=== PATIENT | male | born 1965 | race Caucasian/White ===

== ENCOUNTER 2021-04-11 11:07 | Observation (INO) ==
[2021-04-11] MEDS ORDERED: ASPIRIN CHEW 324 MG PO STA (11:20)
[2021-04-11] MEDS ORDERED: NITROGLYCERIN 2% OINTMENT 30GM TUBE EXT STA (11:20)
[2021-04-11] MEDS ORDERED: LABETALOL HCL IV 5 MG/ML 20ML IV STA (11:20)
--- NOTE | 2021-04-11 11:24 | Emergency Department Note ---
Impression & Plan Precordial chest pain, Hypertension, SOB (shortness of breath) ED Provider Note NAME: CARA CAREY AGE: 56 SEX: M : 1965 ARRIVES VIA: Walk-In INFORMANT: [Patient] ED PROVIDER(S): [Rosalino Horton MD] CHIEF COMPLAINT: Short of breath, doctor referred HISTORY OF PRESENT ILLNESS: The patient is a 56-year-old male with a history of hypertension and smoking. He has a strong family history of coronary disease. He admits that he oftentimes does not take his blood pressure medication. The patient has had a week of shortness of breath, especially with exertion. He has noticed some tightness in his chest. A few days ago, while shoveling ice, he has some moderate central chest discomfort that improved with rest and time. The patient states that 2 nights ago, he had a numb face and some vertigo. He felt very short of breath. Yesterday, he just did not feel quite right and decided to call his doctor's office. Today, at the doctors office, he was referred to the ED for the possibility of cardiac ischemia and/or PE. The patient does have some left posterior thigh pain. This has been ongoing for some time. He has never had a DVT or PE, there has been no leg swelling. The patient did take a home Covid test recently, it was negative. He is vaccin ated for COVID-19 but not influenza. REVIEW OF SYSTEMS: See HPI for pertinent positives and negatives. A total of ten systems were reviewed and were otherwise negative. PMHx/PSHx: See Below SOCIAL HISTORY: See Below. PHYSICAL EXAM: GENERAL: Patient is in no acute distress. HEENT: No acute trauma, normocephalic atraumatic, mucous membranes moist, no nasal congestion, no scleral icterus. NECK: No stridor, no adenopathy, no meningismus, trachea is midline. LUNGS: Clear to auscultation bilaterally, no wheeze, no rhonchi, breath sounds equal. HEART: Without murmurs gallops or rubs, regular rate and rhythm. ABDOMEN: Soft, nontender, bowel sounds positive, no hernias, no peritonitis. EXTREMITIES: No cyanosis or edema, full range of motion of all the joints without pain or difficulty, no signs for acute trauma. NEUROLOGIC: Oriented x 3, no acute motor or sensory deficits, no focal weakness. SKIN: No rash, no jaundice, no diaphoresis. DIFFERENTIAL DIAGNOSIS: Cardiac ischemia, COVID-19, aortic dissection, pulmonary embolism, pneumothorax, pneumonia, pericarditis, myocarditis, esophageal rupture, GERD, cholecystitis, pancreatitis, musculoskeletal, as well as other pathologies. EMERGENCY DEPARTMENT COURSE/PROCEDURES: ECG: Indication was chest pain and shortness of breath. The ECG shows a normal sinus rhythm with a rate of 78. There is no ST elevation, no PVCs. There is a potential old septal infarct noted. The QTc is 440. Continuous Cardiac Monitoring: An order was placed for continuous cardiac monitoring. The monitor shows a rate of 88 with normal sinus rhythm. MEDICAL DECISION MAKING: There is no leukocytosis or concerning anemia. There is a normal platelet count. No coagulopathy. D-dimer is not elevated making PE less likely. No significant electrolyte abnormality, no kidney failure. No worrisome liver enzyme elevation. No evidence for pancreatitis. TSH was a bit high but the T4 was normal. ECG shows a normal sinus rhythm, no ischemia. Cardiac enzyme testing x1 is not consistent with acute cardiac injury. Influenza and Covid testing returned negative. Chest x-ray did not show pneumonia or CHF. No mediastinal widening. Chest CT did not show PE. The patient presented hypertensive. He has been having some shortness of breath and chest pain as of late. He does have cardiac risk factors. The patient was given oral aspirin, IV labetalol and nitroglycerin paste. His blood pressure did decrease. He was resting comfortably. Given his risk factors, given his complaints, I do think further cardiac work-up is warranted. I did speak with the patient and case management. The on-call hospitalist was consulted. Past Med/Surg History Medical History (Updated 04/11/21 @ 14:30 by Rosalino Horton MD) Anxiety History of hepatitis C 10 YRS AGO COMPLETED 12 WEEK TX - "BELOW DETECTABLE LEVELS" History of high blood pressure HX MEDS, NONE CURRENTLY EXCEPT BABY ASPIRIN /MONITORS BP - UPCOMING [facility] SEP 14 Peripheral artery disease PTSD (post-traumatic stress disorder) THERAPY FOR PAST 2 YRS Spinal stenosis Surgical History History of appendectomy History of back surgery X2 - (HX 1 FUSION) History of colonoscopy History of neck surgery FUSION, 3 LEVELS - DENIES LIMITED ROM History of neck surgery 2 SCREWS REMOVED History of surgery R LEG ANGIOGRAM Family History Other Family history of diabetes mellitus in brother Social History Smoking Status: Current every day smoker Tobacco Type: Cigarettes Hx Alcohol Use: Yes Alcohol type: beer Preferred Language: Setswana Communication Ability: Effective Cardiovascular Specialist Required: No Beliefs That Will Affect Care: [employer]al Pent[employer]al Beliefs: HINDU Current Living Situation: Alone Feels Safe at Home: Yes Assistive Devices: Cane, Denture - Upper and Denture - Lower Allergies Allergies Allergy/AdvReac Type Severity Reaction Status Date / Time No Known Allergies Allergy Verified 04/11/21 13:13 Home Meds Home Medications Medication Instructions Recorded Confirmed alprazolam 1 mg tablet 1 mg PO TID PRN 06/03/19 04/11/21 buprenorphine HCl 8 mg sublingual 4 mg SUBLINGUAL QAM 06/03/19 04/11/21 tablet multivit with minerals-folic 1 tab PO QAM 06/03/19 04/11/21 acid-lycopene 0.4 mg-600 mcg tablet (One Daily For Men) amlodipine 5 mg tablet (Norvasc) 5 mg PO QAM 10/22/19 04/11/21 Results & Data (ED) Vital Signs Vital Signs - 24 hr 04/11/21 11:08 04/11/21 11:37 04/11/21 11:40 Pulse Rate 89 Pulse Rate [Apical] 100 H Pulse Rhythm [Apical] Regular Respiratory Rate 20 18 Respiratory Depth Normal Blood Pressure 202/101 H Blood Pressure [Left Arm] 206/110 H Blood Pressure Mean 134 Blood Pressure Mean [Left Arm] 142 Blood Pressure Position Sitting Pulse Oximetry 96 96 96 Oxygen Delivery Method Room Air Room Air Room Air Sepsis Recent Fever Within 48 Hours No Sepsis New/Unexplained Change in Mental Status No Sepsis Action Taken by Nursing No Action Required 04/11/21 12:39 04/11/21 13:59 04/11/21 14:02 Pulse Rate 59 L Pulse Rate [Apical] 71 60 Pulse Rhythm [Apical] Regular Regular Respiratory Rate 18 18 Respiratory Depth Normal Normal Blood Pressure 146/70 H Blood Pressure [Left Arm] 137/74 138/79 Blood Pressure Mean Blood Pressure Mean [Left Arm] 95 98 Blood Pressure Position Pulse Oximetry 94 95 Oxygen Delivery Method Room Air Room Air Sepsis Recent Fever Within 48 Hours Sepsis New/Unexplained Change in Mental Status Sepsis Action Taken by Long Term Medications Current Medication List: was personally reviewed by me Laboratory Data Attestation: I reviewed the patient's lab results. Result diagrams: 04/11/21 11:35 04/11/21 11:35 Lab Results 04/11/21 04/11/21 04/11/21 Range/Units 11:35 11:35 11:35 WBC 5.42 (4.8-10.8) K/uL RBC 4.45 L (4.7-6.1) M/uL Hgb 13.3 L (14.0-18.0) g/dL Hct 39.4 L (42-52) % MCV 88.5 (80-100) fL MCH 29.9 (25-34) pg MCHC 33.8 (32-36) g/dL RDW Std Deviation 43.5 (36.4-46.3) fL RDW Coeff of Nilo 13.3 (11.5-14.5) % Plt Count 202 (130-400) K/uL MPV 9.6 (7.4-10.4) fL Immature Gran % (Auto) 0.2 % Neut % (Auto) 46.8 % Lymph % (Auto) 37.3 % [place] % (Auto) 12.7 % Eos % (Auto) 2.4 % Baso % (Auto) 0.6 % Neut # (Auto) 2.54 (1.4-6.5) K/uL Lymph # (Auto) 2.02 (1.2-3.4) K/uL [place] # (Auto) 0.69 H (0.11-0.59) K/uL Eos # (Auto) 0.13 (0-0.5) K/uL Baso # (Auto) 0.03 (0-0.2) K/uL Immature Gran # (Auto) 0.01 (0.00-0.02) K/uL PT (9.0-12.0) Seconds INR (0.9-1.1) APTT (21.0-31.0) Seconds PTT Ratio D-Dimer (0-500) ug/L FEU Sodium 137 (136-145) mmol/L Potassium (3.5-5.1) mmol/L Chloride 104 (98-107) mmol/L Carbon Dioxide 25 (21-32) mmol/L Anion Gap 8 (3-11) BUN 11 (6-23) mg/dl Creatinine 0.89 (0.6-1.4) mg/dl Est Cr Clr Drug Dosing 90.0 ml/min Est GFR ( Amer) 109.2 ml/min Est GFR (Non-Af Amer) 94.3 ml/min BUN/Creatinine Ratio 12.4 (10-20) Glucose 104 H (70-99(Fasting)) mg/dl Calcium 8.5 (8.5-10.1) mg/dl Magnesium 1.8 (1.7-2.4) mg/dl Total Bilirubin 0.4 (0.2-1.0) mg/dl AST (13-39) U/L ALT 35 (7-52) U/L Alkaline Phosphatase 71 (34-104) U/L Troponin I < 0.03 (0-0.04) ng/ml Total Protein 7.0 (6.0-8.3) gm/dl Albumin 4.3 (3.4-5.0) gm/dl Globulin 2.7 (2.5-4.0) gm/dl Albumin/Globulin Ratio 1.6 (0.9-2) Lipase 16 (11-82) U/L TSH 5.109 H (0.300-4.500) uIu/ml Free T4 0.64 (0.61-1.60) ng/dl Influ A Molecular Assay (Negative) Influ B Molecular Assay (Negative) SARS-CoV-2, RNA, NAAT (NEGATIVE) 04/11/21 04/11/21 04/11/21 Range/Units 11:35 11:35 11:35 WBC (4.8-10.8) K/uL RBC (4.7-6.1) M/uL Hgb (14.0-18.0) g/dL Hct (42-52) % MCV (80-100) fL MCH (25-34) pg MCHC (32-36) g/dL RDW Std Deviation (36.4-46.3) fL RDW Coeff of Nilo (11.5-14.5) % Plt Count (130-400) K/uL MPV (7.4-10.4) fL Immature Gran % (Auto) % Neut % (Auto) % Lymph % (Auto) % [place] % (Auto) % Eos % (Auto) % Baso % (Auto) % Neut # (Auto) (1.4-6.5) K/uL Lymph # (Auto) (1.2-3.4) K/uL [place] # (Auto) (0.11-0.59) K/uL Eos # (Auto) (0-0.5) K/uL Baso # (Auto) (0-0.2) K/uL Immature Gran # (Auto) (0.00-0.02) K/uL PT 10.8 (9.0-12.0) Seconds INR 1.0 (0.9-1.1) APTT 28.1 (21.0-31.0) Seconds PTT Ratio 1.0 D-Dimer 400 (0-500) ug/L FEU Sodium (136-145) mmol/L Potassium (3.5-5.1) mmol/L Chloride (98-107) mmol/L Carbon Dioxide (21-32) mmol/L Anion Gap (3-11) BUN (6-23) mg/dl Creatinine (0.6-1.4) mg/dl Est Cr Clr Drug Dosing ml/min Est GFR ( Amer) ml/min Est GFR (Non-Af Amer) ml/min BUN/Creatinine Ratio (10-20) Glucose (70-99(Fasting)) mg/dl Calcium (8.5-10.1) mg/dl Magnesium (1.7-2.4) mg/dl Total Bilirubin (0.2-1.0) mg/dl AST (13-39) U/L ALT (7-52) U/L Alkaline Phosphatase (34-104) U/L Troponin I (0-0.04) ng/ml Total Protein (6.0-8.3) gm/dl Albumin (3.4-5.0) gm/dl Globulin (2.5-4.0) gm/dl Albumin/Globulin Ratio (0.9-2) Lipase (11-82) U/L TSH (0.300-4.500) uIu/ml Free T4 (0.61-1.60) ng/dl Influ A Molecular Assay Negative (Negative) Influ B Molecular Assay Negative (Negative) SARS-CoV-2, RNA, NAAT NEGATIVE (NEGATIVE) Administered Medications Discontinued Medications Aspirin (Aspirin Chew 324 Mg) 324 mg PO NOW STA Stop: 04/11/21 11:21 Last Admin: 04/11/21 11:51 Dose: 324 mg Documented by: [id number] Ioversol (Optiray 320 125ml) 120 ml IV ONCE ONE Stop: 04/11/21 12:56 Last Admin: 04/11/21 12:55 Dose: 120 ml Documented by: [id number] Labetalol HCl (Labetalol Hcl Iv 5 Mg/Ml 20ml) 10 mg IV NOW STA Stop: 04/11/21 11:21 Last Admin: 04/11/21 11:51 Dose: 10 mg Documented by: [id number] Cosigned by: [id number] Metoprolol Tartrate (Metoprolol Tartrate 1 Mg/Ml Vial) 5 mg IV NOW STA; Protocol Stop: 04/11/21 12:38 Last Admin: 04/11/21 13:59 Dose: Not Given Documented by: [id number] Nitroglycerin (Nitroglycerin 2% Ointment 30gm Tube) 1 inch EXT NOW STA Stop: 04/11/21 11:21 Last Admin: 04/11/21 11:51 Dose: 1 inch Documented by: [id number] Imaging Data Radiologist's Impression: Chest CTA 04/11/21 11:20 CT angio chest PE protocol CLINICAL HISTORY: PE TECHNIQUE: Multidetector row helical CT of the chest was performed with angiographic protocol. Coronal and sagittal reformations were obtained. Coronal and sagittal MIPS were obtained from the axial data set and were submitted for review. Automated dose lowering techniques and/or adjustment according to patient size were utilized for this exam. Comparison: None available at the time of this dictation. FINDINGS: Lungs and pleura: Minimal changes of emphysema and scarring are seen in the apices. There is a 5 mm nodule in the left lung base. Heart and pericardium: Heart size is normal. No pericardial effusion. Vessels: No evidence of pulmonary embolism. Mediastinum and saurabh: Unremarkable. Chest wall and lower neck: Unremarkable. Abdomen: Hepatic steatosis is noted. Bones: Degenerative changes in the thoracic spine. IMPRESSION: 1. No evidence of pulmonary embolism. 2. 5 mm nodule in the left lung base. According to Fleischner criteria, no follow-up is required in low risk patients, in high-risk patients, a 12 month follow-up CT can be optionally performed. 3. Hepatic steatosis. ACT 112: Negative or not required by law. Electronically signed by: Kimani Perales M.D. 04/11/2021 1:27 PM Chest X-Ray 04/11/21 11:21 XR chest 1V portable CLINICAL HISTORY: Atypical chest pain TECHNIQUE: Single frontal radiograph of the chest was obtained. Comparison: Comparison is made to chest one view 06/03/2019 FINDINGS: No lines and tubes are seen. The cardiomediastinal silhouette is normal. The lungs are clear. No evidence of pleural effusion or pneumothorax. Anterior cervical fixation hardware is seen. IMPRESSION: No acute chest disease. ACT 112: Negative or not required by law. Electronically signed by: Kimani Perales M.D. 04/11/2021 11:53 AM Discharge Plan Visit Data Chief Complaint: Referred by Doctor Stated Complaint: DR RODRIGUEZ, POSS BLOOD CLOT AND HEART ATTACK ED Provider: Rosalino Horton Discharge Problem: Precordial chest pain, Hypertension, SOB (shortness of breath) Patient Disposition: Admitted As Inpatient Condition: Good Forms Stand Alone Forms: ViaSat Prescriptions Prescriptions: No Action alprazolam 1 mg Tablet 1 mg PO TID PRN (Reason: Sleep) RF: 0 buprenorphine HCl 8 mg Tablet, Sublingual 4 mg SUBLINGUAL QAM RF: 0 One Daily For Men 0.4-600 mg-mcg Tablet 1 tab PO QAM RF: 0 amlodipine [Norvasc] 5 mg Tablet 5 mg PO QAM RF: 0 Referrals Referrals: Adam Ibarra MD [Primary Care Provider] -
[2021-04-11 11:55] LABS: Basophils # (auto) 0.03 K/uL (0-0.2); Basophils % (auto) 0.6 %; Eosinophils # (auto) 0.13 K/uL (0-0.5); Eosinophils % (auto) 2.4 %; Hematocrit (blood only) 39.4 % (42-52); Hemoglobin 13.3 g/dL (14.0-18.0); Immature Granulocytes # (auto) 0.01 K/uL (0.00-0.02); Immature Granulocytes % (auto) 0.2 %; Lymphocytes # (auto) 2.02 K/uL (1.2-3.4); Lymphocytes % (auto) 37.3 %; Mean Corpuscular Hemoglobin 29.9 pg (25-34); Mean Corpuscular Hgb Conc 33.8 g/dL (32-36); Mean Corpuscular Volume 88.5 fL (80-100); Mean Platelet Volume 9.6 fL (7.4-10.4); Monocytes # (auto) 0.69 K/uL (0.11-0.59); Monocytes % (auto) 12.7 %; Neutrophils # (auto) 2.54 K/uL (1.4-6.5); Neutrophils % (auto) 46.8 %; Platelet Count 202 K/uL (130-400); RDW Coefficient of Variation 13.3 % (11.5-14.5); RDW Standard Deviation 43.5 fL (36.4-46.3); Red Blood Count 4.45 M/uL (4.7-6.1); White Blood Count 5.42 K/uL (4.8-10.8)
--- NOTE | 2021-04-11 11:55 | XRay Report ---
XR chest 1V portable CLINICAL HISTORY: Atypical chest pain TECHNIQUE: Single frontal radiograph of the chest was obtained. Comparison: Comparison is made to chest one view 06/03/2019 FINDINGS: No lines and tubes are seen. The cardiomediastinal silhouette is normal. The lungs are clear. No evid ence of pleural effusion or pneumothorax. Anterior cervical fixation hardware is seen. IMPRESSION: No acute chest disease. ACT 112: Negative or not required by law. Electronically signed by: Kimani Perales M.D. 04/11/2021 11:53 AM
[2021-04-11 12:05] LABS: D Dimer 400 ug/L FEU (0-500); Partial Thromboplastin Time 28.1 Seconds (21.0-31.0); Prothrombin Time 10.8 Seconds (9.0-12.0)
[2021-04-11 12:12] LABS: Influenza A virus by PCR Negative (Negative); Influenza B virus by PCR Negative (Negative)
[2021-04-11 12:17] LABS: Troponin I < 0.03 ng/ml (0-0.04)
[2021-04-11 12:36] LABS: Alanine Aminotransferase 35 U/L (7-52); Albumin Globulin Ratio 1.6 (0.9-2); Albumin Level 4.3 gm/dl (3.4-5.0); Alkaline Phosphatase 71 U/L (34-104); Anion Gap 8 (3-11); BUN Creatinine Ratio 12.4 (10-20); Bilirubin,Total 0.4 mg/dl (0.2-1.0); Blood Urea Nitrogen 11 mg/dl (6-23); Calcium 8.5 mg/dl (8.5-10.1); Carbon Dioxide 25 mmol/L (21-32); Chloride 104 mmol/L (98-107); Est GFR (African American) 109.2 ml/min; Est GFR (Non-African American) 94.3 ml/min; Globulin 2.7 gm/dl (2.5-4.0); Glucose 104 mg/dl (70-99(Fasting)); Lipase 16 U/L (11-82); Magnesium 1.8 mg/dl (1.7-2.4); Sodium 137 mmol/L (136-145)
[2021-04-11] MEDS ORDERED: METOPROLOL TARTRATE 1 MG/ML VIAL IV STA (12:37)
[2021-04-11 12:54] LABS: Thyroid Stimulating Hormone 5.109 uIu/ml (0.300-4.500)
[2021-04-11] MEDS ORDERED: OPTIRAY 320 125ml IV ONE (12:55)
--- NOTE | 2021-04-11 13:29 | CT Scan Report ---
CT angio chest PE protocol CLINICAL HISTORY: PE TECHNIQUE: Multidetector row helical CT of the chest was performed with angiographic protocol. Martinez l and sagittal reformations were obtained. Coronal and sagittal MIPS were obtained from the axial zandra a set and were submitted for review. Automated dose lowering techniques and/or adjustment according to patient size were utilized for this exam. Comparison: None available at the time of this dictation. FINDINGS: Lungs and pleura: Minimal changes of emphysema and scarring are seen in the apices. There is a 5 mm n odule in the left lung base. Heart and pericardium: Heart size is normal. No pericardial effusion. Vessels: No evidence of pulmonary embolism. Mediastinum and saurabh: Unremarkable. Chest wall and lower neck: Unremarkable. Abdomen: Hepatic steatosis is noted. Bones: Degenerative changes in the thoracic spine. IMPRESSION: 1. No evidence of pulmonary embolism. 2. 5 mm nodule in the left lung base. According to Fleischner criteria, no follow-up is required in low risk patients, in high-risk patients, a 12 month follow-up CT can be optionally performed. 3. Hepatic steatosis. ACT 112: Negative or not required by law. Electronically signed by: Kimani Perales M.D. 04/11/2021 1:27 PM
[2021-04-11 13:31] LABS: T4 Free Thyroxine 0.64 ng/dl (0.61-1.60)
--- NOTE | 2021-04-11 13:32 | Electrocardiogram Report ---
Test Reason : Blood Pressure : / mmHG Vent. Rate : 078 BPM Atrial Rate : 078 BPM P-R Int : 164 ms QRS Dur : 076 ms QT Int : 386 ms P-R-T Axes : 058 043 050 degrees QTc Int : 440 ms Poor data quality, interpretation may be adversely affected Normal sinus rhythm Septal infarct , age undetermined Abnormal ECG When compared with ECG of 16-OCT-2019 11:23, Septal infarct is now Present Confirmed by Yogesh Padilla ([id number]) on 04/11/2021 1:32:24 PM Referred By: Confirmed By:Yogesh Padilla
[2021-04-11] MEDS ORDERED: ALPRAZolam 0.5 MG TABLET PO PRN (14:46)
[2021-04-11] MEDS ORDERED: ACETAMINOPHEN 325 MG TAB PO PRN (14:46)
--- NOTE | 2021-04-11 15:03 | History & Physical Report ---
Date of Service April 11, 2021 Assessment & Plan (1) Chest pain: Plan: Admit to telemetry Patient presenting from home with reports of 1 week of worsening shortness of breath and episode of chest pain while shoveling snow Initial troponin negative, EKG without acute ST changes Serial cardiac enzymes Suspect that hypertensive urgency and anxiety are likely contributing to patient's symptoms however given risk factors (HTN, tobacco abuse, + family history), will proceed with stress testing tomorrow (2) Hypertensive urgency: Plan: Presenting BP 202/101 Received labetalol, topical nitroglycerin in ED with improvement in BP Patient 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 Will hold on resuming Risperdal at this time since patient states " I am not taking that one" Offered psychiatry consult to patient however he declines at this time and wishes to reestablish with his previous psychiatrist in [facility] (5) Opioid abuse, in remission: Plan: Continue Subutex (6) DVT prophylaxis: Plan: SQ Lovenox Admission and Anticipated Discharge Date Admission Date: April 11, 2021 History of Present Illness Chief Complaint: Chest Pain, Shortness of Breath Primary Care Provider: Adam Ibarra MD 56-year-old male with PMH HTN, tobacco abuse, former opiate abuse on Suboxone, anxiety, bipolar disorder, PTSD, and other problems to below who presents the ED by referral of outpatient PCP office for evaluation of chest pain or shortness of breath. Patient is somewhat of a poor historian. Reports noncompliance with his psychiatric and blood pressure medicines over the past few to several weeks. Over the past 1 week, patient notes worsening shortness of breath with episode of chest pain. Patient reports he developed chest pain while shoveling snow a few days ago. He has been having shortness of breath with minimal to moderate exertion. States that symptoms are similar to his anxiety attacks however typically he can take alprazolam with relief of symptoms, the alprazolam has not relieved his symptoms this week. Patient reports issues with ongoing fatigue over the past several months. Denies lightheadedness, dizziness, diaphoresis, syncopal events. No abdominal pain, nausea, vomiting, diarrhea. Denies any other recent illnesses, fevers, chills. No urinary symptoms. In the ED, patient is found to be significantly hypertensive with BP 202/101. Initial troponin negative, EKG negative for acute ST changes. CTA chest negative for pulmonary embolism. Patient was given full dose aspirin, labetalol 10 mg IV, 1 inch nitroglycerin paste with improvement in BP. Allergies Allergy/AdvReac Type Severity Reaction Status Date / Time No Known Allergies Allergy Verified 04/11/21 13:13 Home Medications Medication Instructions Recorded Confirmed Type alprazolam 1 mg tablet 1 mg PO TID PRN 06/03/19 04/11/21 History buprenorphine HCl 8 mg sublingual 4 mg SUBLINGUAL QAM 06/03/19 04/11/21 History tablet multivit with minerals-folic 1 tab PO QAM 06/03/19 04/11/21 History acid-lycopene 0.4 mg-600 mcg tablet (One Daily For Men) amlodipine 5 mg tablet (Norvasc) 5 mg PO QAM 10/22/19 04/11/21 History prazosin 2 mg capsule 2 mg PO HS 04/11/21 04/11/21 History quetiapine 100 mg tablet 100 mg PO HS 04/11/21 04/11/21 History risperidone 4 mg tablet 4 mg PO TID 04/11/21 04/11/21 History Past Med/Surg History Medical History Anxiety Bipolar 1 disorder History of hepatitis C 10 YRS AGO COMPLETED 12 WEEK TX - "BELOW DETECTABLE LEVELS" History of high blood pressure Opioid abuse, in remission Peripheral artery disease PTSD (post-traumatic stress disorder) THERAPY FOR PAST 2 YRS Spinal stenosis Surgical History History of appendectomy History of back surgery X2 - (HX 1 FUSION) History of colonoscopy History of neck surgery FUSION, 3 LEVELS - DENIES LIMITED ROM History of neck surgery 2 SCREWS REMOVED History of surgery R LEG ANGIOGRAM Status post cervical spinal fusion Status post rotator cuff repair Family History (Updated 04/11/21 @ 15:01 by RAFAEL Boo) Brother Heart disease Aunt Heart disease Hypertension Stroke Grandfather Heart disease Hypertension Stroke Grandmother Heart disease Hypertension Stroke Daughter No problems noted. 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 Review of Systems Review of Systems: ROS per HPI, all other systems reviewed and negative Physical Exam Constitutional: WD/WN, vitals as above Eyes: PERRL, conjunctivae normal, anicteric sclerae ENMT: external ear and nose normal, oropharynx normal Respiratory: normal respiratory effort, lungs clear to auscultation Cardiovascular: Rate/Rhythm: regular rate and regular rhythm Vessels: normal peripheral pulses Extremities: no edema Gastrointestinal (Abdomen): normal bowel sounds, soft, nontender, no hepatosplenomegaly Musculoskeletal: no cyanosis or clubbing, extremities motor strength 5/5 Skin: no rashes, warm and dry Neurologic: PERRL, EOMI, accommodation nl, no face palsy, no dysarthria Psychiatric: Orientation: alert and oriented x 3 Affect: + anxious affect Results & Data Results & Data ([facility]) Vital Signs (Past 12 Hours) Vital Signs Temp Pulse Pulse Resp BP BP Pulse Ox 04/11/21 14:46 36.6 C 66 20 191/88 H 96 04/11/21 14:26 62 18 137/79 94 04/11/21 14:02 60 18 138/79 95 04/11/21 13:59 59 L 146/70 H 04/11/21 12:39 71 18 137/74 94 04/11/21 11:40 96 04/11/21 11:37 100 H 18 206/110 H 96 04/11/21 11:08 89 20 202/101 H 96 Laboratory Results Short CBC 03/01/22 Range/Units 11:35 WBC 5.42 (4.8-10.8) K/uL Hgb 13.3 L (14.0-18.0) g/dL Hct 39.4 L (42-52) % Plt Count 202 (130-400) K/uL BMP 04/11/21 04/11/21 11:35 13:57 Sodium 137 Potassium 3.8 Chloride 104 Carbon Dioxide 25 BUN 11 Creatinine 0.89 Glucose 104 H Calcium 8.5 Cardiac Enzymes 04/11/21 Range/Units 11:35 Troponin I < 0.03 (0-0.04) ng/ml Liver Function 04/11/21 Range/Units 11:35 Total Bilirubin 0.4 (0.2-1.0) mg/dl AST (13-39) U/L ALT 35 (7-52) U/L Alkaline Phosphatase 71 (34-104) U/L Albumin 4.3 (3.4-5.0) gm/dl Diagnostic Findings Chest CTA 04/11/21 11:20 CT angio chest PE protocol CLINICAL HISTORY: PE TECHNIQUE: Multidetector row helical CT of the chest was performed with angiographic protocol. Coronal and sagittal reformations were obtained. Coronal and sagittal MIPS were obtained from the axial data set and were submitted for review. Automated dose lowering techniques and/or adjustment according to patient size were utilized for this exam. Comparison: None available at the time of this dictation. FINDINGS: Lungs and pleura: Minimal changes of emphysema and scarring are seen in the apices. There is a 5 mm nodule in the left lung base. Heart and pericardium: Heart size is normal. No pericardial effusion. Vessels: No evidence of pulmonary embolism. Mediastinum and saurabh: Unremarkable. Chest wall and lower neck: Unremarkable. Abdomen: Hepatic steatosis is noted. Bones: Degenerative changes in the thoracic spine. IMPRESSION: 1. No evidence of pulmonary embolism. 2. 5 mm nodule in the left lung base. According to Fleischner criteria, no follow-up is required in low risk patients, in high-risk patients, a 12 month follow-up CT can be optionally performed. 3. Hepatic steatosis. ACT 112: Negative or not required by law. Electronically signed by: Kimani Perales M.D. 04/11/2021 1:27 PM Chest X-Ray 04/11/21 11:21 XR chest 1V portable CLINICAL HISTORY: Atypical chest pain TECHNIQUE: Single frontal radiograph of the chest was obtained. Comparison: Comparison is made to chest one view 06/03/2019 FINDINGS: No lines and tubes are seen. The cardiomediastinal silhouette is normal. The l ungs are clear. No evidence of pleural effusion or pneumothorax. Anterior cervical fixation hardware is seen. IMPRESSION: No acute chest disease. ACT 112: Negative or not required by law. Electronically signed by: Kimani Perales M.D. 04/11/2021 11:53 AM Code Status & VTE Plan Code Status Patient is a full code as per my discussion with him. Patient states that his , Amara, would make decisions on his behalf if he were unable to. VTE Prophylaxis Plan VTE Prophylaxis will be ordered: Yes Supervising Physician Co-Signing Physician Notes Patient is a 56-year-old male with history of hypertension, mood disorder, tobacco use disorder and other medical problems presents with history of chest pain, retrosternal, nonradiating, associated with shortness of breath, burning and pressure-like sensation. He admits to not taking his blood pressure medications regularly. Denies any recent drug use. Currently on Suboxone. Denies any recent infections, fever, chills. Symptoms have been gradually worsening since last week. Please review HPI for complete details of presentation. CTA showed no PE, incidentally found left lower lobe pulmonary nodule. He was in hypertensive urgency while in ED. Initial troponin negative. EKG showed no signs of ST elevation. Currently he is chest pain-free after control of blood pressure. On exam patient is well-built and nourished, no apparent distress, normocephalic atraumatic, EOMI, normal breath sounds, clear to auscultation, S1-S2, no murmur, no pedal edema, abdomen soft, nontender, normal bowel sounds, alert, awake, oriented, grossly no focal deficits. Patient is admitted for management of hypertensive urgency, chest pain rule out ACS. Received aspirin while in ED. Will trend cardiac enzymes, check resting echo, lipid panel and repeat EKG in the morning. Will control blood pressure with resuming amlodipine, start on losartan 50 mg daily. IV hydralazine as needed. Will request for stress test in a.m. Advised to quit smoking. Will need repeat CT in 12 months as outpatient for evaluation of pulmonary nodule. Abnormal TSH noted. Will need repeat thyroid function tests as outpatient. Consider cardiology evaluation if needed. I personally reviewed the record. Patient is interviewed and examined at bedside. Patient's care is coordinated with Asya Lopez NP. Please refer to the documentation above for details of patient's presentation and for discussion of other issues.
[2021-04-11] MEDS: amLODIPine BESYLATE 5 MG TAB PO SCH (15:41)
[2021-04-11] MEDS ORDERED: hydrALAZINE HCL 20 MG/ML VIAL IV PRN (15:52)
[2021-04-11] MEDS: LOSARTAN POTASSIUM 50 MG TAB PO SCH (16:20)
[2021-04-11] MEDS: NICOTINE 21 MG/24 HR TDSY TD SCH (16:21)
[2021-04-11] MEDS ORDERED: POTASSIUM CHLORIDE CRTAB 20 MEQ TABCR PO STA (19:28)
[2021-04-11] MEDS ORDERED: MAGNESIUM SULFATE / D5W 1 GM/100 ML BAG IV ONE (19:45)
[2021-04-11] MEDS ORDERED: ENALAPRILAT 0.625 MG in SYRINGE 9.5 ML IV STA (19:50)
[2021-04-11] MEDS ORDERED: NITROGLYCERIN SL 0.4 MG/TAB TAB SL STA (19:53)
[2021-04-11] MEDS ORDERED: NITROGLYCERIN SL 0.4 MG/TAB TAB SL PRN (20:07)
[2021-04-11] MEDS: LORazepam 2 MG/1 ML VIAL IV PRN (20:30)
[2021-04-11] MEDS ORDERED: PRAZOSIN HCL 1 MG CAP PO SCH (21:00)
[2021-04-11] MEDS ORDERED: QUEtiapine FUMARATE 100 MG TABLET PO SCH (21:00)
[2021-04-11] MEDS ORDERED: ENOXAPARIN INJ 40 MG/0.4 ML SYR SQ SCH (21:00)
[2021-04-12] MEDS: LORazepam 2 MG/1 ML VIAL IV PRN ×2 (00:18→05:24)
[2021-04-12 06:10] LABS: Hematocrit (blood only) 38.8 % (42-52); Hemoglobin 13.3 g/dL (14.0-18.0); Mean Corpuscular Hemoglobin 30.5 pg (25-34); Mean Corpuscular Hgb Conc 34.3 g/dL (32-36); Mean Platelet Volume 9.4 fL (7.4-10.4); Platelet Count 199 K/uL (130-400); RDW Coefficient of Variation 13.5 % (11.5-14.5); Red Blood Count 4.36 M/uL (4.7-6.1); White Blood Count 4.74 K/uL (4.8-10.8)
[2021-04-12 06:33] LABS: BUN Creatinine Ratio 16.9 (10-20); Chol HDL Ratio 4.9 (0-5); Creatinine Clr Calc Pharmacy 108.2 ml/min; Est GFR (African American) 119.9 ml/min; Est GFR (Non-African American) 103.4 ml/min; Potassium 3.8 mmol/L (3.5-5.1)
--- NOTE | 2021-04-12 08:11 | Communication Note ---
Date of Service: April 12, 2021 The patient has voiced to hospitalist group and psych liaison nurse that he does not want a psychiatric consultation. He was restarted on prazosin and Seroquel on admission which seems appropriate. He wants to establish with his previous provider in [facility]. He has had some breakthrough anxiety and was seeking Xanax. It is our service opinion that benzos should be avoided in patients on suboxone unless for detox from ETOH or rare use in supervised setting. Consult will be discontinued. Please reconsult if additional concerns arise and patient is willing. On brief interactions it does not appear that he is suicidal or psychotic so there would be no indication for an involuntary eval under [address] at this time. Dr. Mukherjee notified.
[2021-04-12] MEDS: NICOTINE 21 MG/24 HR TDSY TD SCH (08:24)
[2021-04-12] MEDS: amLODIPine BESYLATE 5 MG TAB PO SCH (08:24)
[2021-04-12] MEDS: LOSARTAN POTASSIUM 50 MG TAB PO SCH (08:24)
[2021-04-12] MEDS ORDERED: buprenorphine HCL 2 MG SUBL SL SCH (09:00)
[2021-04-12] MEDS ORDERED: ASPIRIN 81 MG ECTAB PO SCH (09:00)
[2021-04-12] MEDS ORDERED: amLODIPine BESYLATE 5 MG TAB PO ONE (11:00)
--- NOTE | 2021-04-12 13:21 | Hospitalist Progress Note ---
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 Will hold on resuming Risperdal at this time since patient states " I am not taking that one" Offered psychiatry consult to patient however he declines at this time and wishes to reestablish with his previous psychiatrist in [facility] 04/12/21 states mood is stable continue usual Seroquel, Prazosin ff up with outpatient Psych (5) Opioid abuse, in remission: Plan: Continue Subutex (6) DVT prophylaxis: Plan: SQ Lovenox Disposition d/c home this afternoon when BP stable Admission and Anticipated Discharge Date Admission Date: April 11, 2021 Subjective ff up for chest pain, HTN urgency, etc seen resting in bed, comfortable s/p stress echo in good spirits states he feels better today no chest pain, dyspnea, palpitations, dizziness no headache, focal neuro symptoms states mood is fine- denies depression symptoms or suicidal ideations no other symptoms Review of Systems Review of Systems: all noted and negative except for above Physical Exam Physical Exam: General- oriented x 3, not in distress, speaks in sentences with no effort or accessory muscle use Eyes- anicteric Neck- no JVD Lungs- clear breath sounds bilaterally, no rales/wheezes Heart- normal rate, regular rhythm; no murmurs Abdomen- normal bowel sounds, nondistended, soft, nontender Extremities- no pretibial edema, no calf tenderness Neuro- alert, oriented x 3; no gross focal neurologic deficits Skin- warm & dry Psych- in good spirits, smiling, normal affect, denies anxiety or depression Results & Data Results & Data ([facility]) Vital Signs (Past 12 Hours) Vital Signs Temp Pulse Resp BP BP Pulse Ox 04/12/21 10:44 36.5 C 73 16 161/77 H 95 04/12/21 07:38 36.6 C 59 L 14 137/77 95 04/12/21 03:18 36.4 C L 61 17 123/75 96 all noted and reviewed including below
--- NOTE | 2021-04-12 15:48 | Discharge Summary ---
Date of Service April 12, 2021 Admission HPI Per Admitting Provider 56-year-old male with PMH HTN, tobacco abuse, former opiate abuse on Suboxone, anxiety, bipolar disorder, PTSD, and other problems to below who presents the ED by referral of outpatient PCP office for evaluation of chest pain or shortness of breath. Patient is somewhat of a poor historian. Reports noncompliance with his psychiatric and blood pressure medicines over the past few to several weeks. Over the past 1 week, patient notes worsening shortness of breath with episode of chest pain. Patient reports he developed chest pain while shoveling snow a few days ago. He has been having shortness of breath with minimal to moderate exertion. States that symptoms are similar to his anxiety attacks however typically he can take alprazolam with relief of symptoms, the alprazolam has not relieved his symptoms this week. Patient reports issues with ongoing fatigue over the past several months. Denies lightheadedness, dizziness, diaphoresis, syncopal events. No abdominal pain, nausea, vomiting, diarrhea. Denies any other recent illnesses, fevers, chills. No urinary symptoms. In the ED, patient is found to be significantly hypertensive with BP 202/101. Initial troponin negative, EKG negative for acute ST changes. CTA chest negative for pulmonary embolism. Patient was given full dose aspirin, labetalol 10 mg IV, 1 inch nitroglycerin paste with improvement in BP. Admission Exam (Per Admitting) Constitutional Constitutional: WD/WN, vitals as above Eyes: PERRL, conjunctivae normal, anicteric sclerae ENMT: external ear and nose normal, oropharynx normal Respiratory: normal respiratory effort, lungs clear to auscultation Cardiovascular: Rate/Rhythm: regular rate and regular rhythm Vessels: normal peripheral pulses Extremities: no edema Gastrointestinal (Abdomen): normal bowel sounds, soft, nontender, no hepatosplenomegaly Musculoskeletal: no cyanosis or clubbing, extremities motor strength 5/5 Skin: no rashes, warm and dry Neurologic: PERRL, EOMI, accommodation nl, no face palsy, no dysarthria Psychiatric: Orientation: alert and oriented x 3 Affect: + anxious affect Discharge Data Consultations 04/11/21 13:47 ED Decision to Admit Stat Procedures Performed STRESS ECHOCARDIOGRAM CT angio chest PE protocol CLINICAL HISTORY: PE TECHNIQUE: Multidetector row helical CT of the chest was performed with angiographic protocol. Coronal and sagittal reformations were obtained. Coronal and sagittal MIPS were obtained from the axial data set and were submitted for review. Automated dose lowering techniques and/or adjustment according to patient size were utilized for this exam. Comparison: None available at the time of this dictation. FINDINGS: Lungs and pleura: Minimal changes of emphysema and scarring are seen in the apices. There is a 5 mm nodule in the left lung base. Heart and pericardium: Heart size is normal. No pericardial effusion. Vessels: No evidence of pulmonary embolism. Mediastinum and saurabh: Unremarkable. Chest wall and lower neck: Unremarkable. Abdomen: Hepatic steatosis is noted. Bones: Degenerative changes in the thoracic spine. IMPRESSION: 1. No evidence of pulmonary embolism. 2. 5 mm nodule in the left lung base. According to Fleischner criteria, no follow-up is required in low risk patients, in high-risk patients, a 12 month follow-up CT can be optionally performed. 3. Hepatic steatosis. ACT 112: Negative or not required by law. Electronically signed by: Kimani Perales M.D. 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 Will hold on resuming Risperdal at this time since patient states " I am not taking that one" Offered psychiatry consult to patient however he declines at this time and wishes to reestablish with his previous psychiatrist in [facility] 04/12/21 states mood is stable continue usual Seroquel, Prazosin ff up with outpatient Psych (5) Opioid abuse, in remission: Continue Subutex (6) Abnormal CT scan, chest: 1. No evidence of pulmonary embolism. 2. 5 mm nodule in the left lung base. According to Fleischner criteria, no follow-up is required in low risk patients, in high-risk patients, a 12 month follow-up CT can be optionally performed. 3. Hepatic steatosis. Please refer to full report in the Ordered Studies section above Further work up, management, and ff up as outpatient (7) DVT prophylaxis: SQ Lovenox Disposition d/c home ff up with PCP in 1 week
--- NOTE | 2021-04-12 16:21 | Electrocardiogram Report ---
Test Reason : Blood Pressure : / mmHG Vent. Rate : 065 BPM Atrial Rate : 065 BPM P-R Int : 158 ms QRS Dur : 090 ms QT Int : 420 ms P-R-T Axes : 032 039 041 degrees QTc Int : 436 ms Poor data quality, interpretation may be adversely affected Normal sinus rhythm Normal ECG When compared with ECG of 11-APR-2021 11:23, Criteria for Septal infarct are no longer Present Confirmed by Yogesh Padilla ([id number]) on 04/12/2021 4:21:07 PM Referred By: Adam Ibarra Confirmed By:Yogesh Padilla
[2021-04-12] MEDS ORDERED: PRAZOSIN HCL 1 MG CAP PO SCH (21:00)
== END 2021-04-12 17:32 | disposition home or self-care (01) ==
LOC: ED 11:07 → 2S 11:07 → SUATTDRO 13:57 → 2S 14:26